=== PATIENT | female | born 2000 | race Caucasian/White ===

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

== ENCOUNTER 2024-03-03 22:15 | Emergency (ER) | payer OTHER ==
[2024-03-03 22:23] VITALS: BP 110/66; PULSE 100; RESP 18; TEMP 99.1; BMI 31.1
[2024-03-03] MEDS ORDERED: KETOROLAC TROMETHAMINE 15 MG/ML VIAL ONE (23:27)
[2024-03-03] MEDS ORDERED: ONDANSETRON *ODT* 4 MG TABLET ONE (23:27)
[2024-03-03] MEDS: KETOROLAC TROMETHAMINE 30 MG/1 ML VIAL IM ONE (23:37)
[2024-03-03] MEDS: ONDANSETRON *ODT* 4 MG TABLET SL ONE (23:37)
== END 2024-03-04 00:04 | disposition home or self-care (01) ==
LOC: JER 22:15
PROC: 3E0133Z Introduction of Anti-inflammatory into Subcutaneous Tissue, Percutaneous Approach (ICD-10-PCS; principal; 2024-03-03)
DX: J10.1 Influenza due to other identified influenza virus with other respiratory manifestations (principal); R50.9 Fever, unspecified; R11.0 Nausea; J02.9 Acute pharyngitis, unspecified; R42 Dizziness and giddiness; R05.9 Cough, unspecified; R07.2 Precordial pain; R06.02 Shortness of breath; Z20.822 Contact with and (suspected) exposure to COVID-19
CPT/HCPCS: 0241U-QW; 99284-25; Q0162